=== PATIENT | female | born 1990 | race Caucasian/White ===

== ENCOUNTER 2024-01-21 12:05 | Emergency (ER) | payer OTHER, SELFPAY ==
[2024-01-21 12:15] VITALS: BP 146/81; PULSE 91; TEMP 37.1; O2SAT 99; BMI 21.9
--- NOTE | 2024-01-21 12:32 | XR_ITS ---
The [address] [address] Patient Name: JUAN LUGO MRN: [id number] date: 1990 Sex: F Assigned Patient Location: ER Current Patient Location: ER Accession/Order Number: [id number] Exam Date: 01/21/2024 12:28 Report Date: 01/21/2024 12:49 At the request of: SANDRA ELIZALDE Procedure: XR chest 2V EXAMINATION: XR chest 2V HISTORY: cough , chest tightness, difficulty breathing, hoarseness COMPARISON: No relevant comparison available. FINDINGS: LUNGS: No significant pulmonary parenchymal abnormalities. VASCULATURE: No increased pulmonary vasculature. PLEURA: No pneumothorax, effusion, or pleural thickening. CARDIAC: No cardiomegaly or cardiac silhouette abnormality. MEDIASTINUM: No visible mass or adenopathy. BONES: No fracture or visible bone lesion. OTHER: Negative. XR/XR chest 2V IMPRESSION: 1. No acute cardiopulmonary process. Electronically authenticated by: NASIM MOSES Date: 01/21/2024 12:49
[2024-01-21 13:05] VITALS: BP 124/87; PULSE 74; O2SAT 99
--- NOTE | 2024-01-21 14:11 | ED_ITS ---
HPI HPI - General Adult General Chief complaint: Upper Respiratory Infection Stated complaint: SHORTNESS OF BREATH/CHEST PAIN Time Seen by Provider: 01/21/24 12:10 Source: patient Mode of arrival: walk-in Limitations: no limitations History of Present Illness HPI narrative: Patient presents to ED complaining of sinus pressure and nasal congestion with a cough. She said over the weekend they were at a softball tournament and they were in a lot of dust and she started to have some eye irritation and cough with congestion. Patient states today she started coughing and felt like something got stuck in her throat and then she felt like she could not breathe so she came in for evaluation. Patient is resting comfortably here at 99% on room air no acute respiratory distress no wheezing. No fevers. Patient denies chest pain. Mild throat pain mild facial pressure and sinus pain. She came in with her daughter who has similar symptoms as well Related Data Home Medications ?Medication ?Instructions ?Recorded ?Confirmed No Known Home Medications 01/21/24 01/21/24 Allergies Allergy/AdvReac Type Severity Reaction Status Date / Time Penicillins AdvReac Severe Rash Verified 01/21/24 12:15 Opioid HPI Opioid Management Most Recent Opioid Data: No Data to Display Review of Systems ROS Status of ROS 10 or more systems reviewed and unremark able except as noted in history and below Exam Narrative Exam Narrative: General: alert, no acute distress Cardiovascular: regular rate and rhythm, normal peripheral perfusion. Respiratory: Lungs CTA, respirations non labored. Extremities: no deformity, no trauma. Neurological: oriented x 4, LOC appropriate for age. Constitutional Vital Signs, click to edit/add: Last Vital Signs Temp 98.8 F 01/21/24 12:15 Pulse 74 01/21/24 13:05 Resp 18 01/21/24 13:05 BP 124/87 01/21/24 13:05 Pulse Ox 99 01/21/24 13:05 O2 Del Method Room Air 01/21/24 13:05 Course Vital Signs Vital signs: Vital Signs Temperature 98.8 F 01/21/24 12:15 Pulse Rate 91 H 01/21/24 12:15 Respiratory Rate 20 01/21/24 12:15 Blood Pressure 146/81 H 01/21/24 12:15 Pulse Oximetry 99 01/21/24 12:15 Oxygen Delivery Method Room Air 01/21/24 12:15 Temperature 98.8 F 01/21/24 12:15 Pulse Rate 74 01/21/24 13:05 Respiratory Rate 18 01/21/24 13:05 Blood Pressure 124/87 01/21/24 13:05 Pulse Oximetry 99 01/21/24 13:05 Oxygen Delivery Method Room Air 01/21/24 13:05 Medical Decision Making MDM Narrative Medical decision making narrative: Patient's chest x-ray is clear. Patient declined the flu COVID and RSV swabs. She did have mild erythema in her throat but she said it is always like that worse on the left allergies or mild upper respiratory infection. Please use symptomatic treatment at home. Return to ED if worsening symptoms Differential Diagnosis Differential Diagnosis: Seasonal allergies, URI Medical Records Medical records reviewed: Yes I reviewed the patient's medical records Imaging Data Chest x-ray: Radiologist's impression: ITS Impressions Chest X-Ray 01/21/24 12:32 IMPRESSION: 1. No acute cardiopulmonary process. Electronically authenticated by: NASIM MOSES Date: 01/21/2024 12:49 Discharge Plan Discharge Stand Alone Forms: Portal Instructions Chief Complaint: Upper Respiratory Infection Clinical Impression: Upper respiratory infection Patient Disposition: Home, Self-Care Time of Disposition Decision: 12:57 Mode of Transportation: Private Vehicle Prescriptions / Home Meds: No Action No Known Home Medications Print Language: [place] Instructions: Upper Respiratory Infection (ED) Referrals: Physician,Non-Staff, MD [Primary Care Provider] - 1 week Discharge Date/Time: 01/21/24 13:05
== END 2024-01-21 13:05 | disposition home or self-care (01) ==
PROVIDERS: Emergency Provider Emergency Medicine; Family Provider Family Medicine
DX: J06.9 Acute upper respiratory infection, unspecified (principal)
CPT/HCPCS: 71046; 87420; 87804; 87811; 99283